=== PATIENT | female | born 1960 | race Caucasian/White ===

== ENCOUNTER 2022-05-07 22:15 | Emergency (ER) | payer OTHER ==
[~2022-05-07] VITALS: Ht 160 cm; Wt 77.1 kg
[2022-05-07 22:56] VITALS: BP_SYST 114
--- NOTE | 2022-05-07 22:58 | NUR ---
Patient triaged and placed in waiting room. VSS and patient appears in no acute distress at this time. Accompanied by , awaiting available bed, and MD notified of need for MSE.
[2022-05-08] MEDS ORDERED: ACETAMINOPHEN 500 MG TABLET PO ONE
--- NOTE | 2022-05-08 00:05 | NUR ---
Patient presents to ED from home with c/o pain s/p mechanical fall. Patient reports pain 8/10 at this time. Patient A/Ox4, VSS, ambulatory, resp even and unlabored. Skin warm and dry, superficial abrasion noted to the left forearm. Patient's at bedside. Nad noted at this time.
--- NOTE | 2022-05-08 00:30 | NUR ---
ER MD Avalos at bedside.
--- NOTE | 2022-05-08 00:47 | NUR ---
Patient resting comfortably in bed with side rails raised. Nad noted at this time.
[2022-05-08 01:53] VITALS: BP_SYST 112
--- NOTE | 2022-05-08 01:53 | NUR ---
Patient given written and verbal discharge instructions and verbalizes understanding. ER MD discussed with patient the results and treatment provided. Patient in stable condition. ID arm band removed. no rx given. Patient educated on pain management and to follow up with PMD. Pain Scale 0/10 Opportunity for questions provided and answered.
== END 2022-05-08 01:53 | disposition home or self-care (01) ==
LOC: SED 22:15
DX: S00.03XA Contusion of scalp, initial encounter (principal); I10 Essential (primary) hypertension; Z79.899 Other long term (current) drug therapy; W18.2XXA Fall in (into) shower or empty bathtub, initial encounter; Y93.89 Activity, other specified; Y92.89 Other specified places as the place of occurrence of the external cause; Y99.8 Other external cause status
CPT/HCPCS: 70450-TC; 76376; 99284